=== PATIENT | male | born 1970 | race Caucasian/White ===

== ENCOUNTER 2023-10-07 08:05 | Day surgery (SDC) | payer BC ==
[2023-10-07] MEDS: Lactated Ringers 1,000 ML IV SCH (08:34)
[2023-10-07] MEDS ORDERED: dexmedeTOMIDine HCl 200 MCG/2 ML SDV ONE (10:06)
[2023-10-07] MEDS ORDERED: Water For Injection, Sterile 20 ML ONE (10:07)
[2023-10-07] MEDS ORDERED: propofoL 50 ML ONE (10:19)
[2023-10-07] MEDS ORDERED: fentaNYL 100 MCG/2 ML SDV ONE (10:30)
== END 2023-10-07 11:33 | disposition home or self-care (01) ==
LOC: MW.SDS 08:05
PROVIDERS: ATTEND Surgery
DX: K57.31 Diverticulosis of large intestine without perforation or abscess with bleeding (principal); K90.49 Malabsorption due to intolerance, not elsewhere classified; F41.9 Anxiety disorder, unspecified; F32.A Depression, unspecified; Z98.84 Bariatric surgery status
CPT/HCPCS: 00811; J2704; J3010; J3490; J7120